=== PATIENT | male | born 1955 | race Caucasian/White ===

== ENCOUNTER → 2018-03-12 12:28 | Outpatient (CLI) | payer OTHER, SELFPAY ==
--- NOTE | 2018-03-12 | DI.ECHO.S_ITS ---
[facility]---------+ [facility] +---------+ : : [address] : [address] : : : : [id number] : : : : Phone: [phone]---------+ Echocardiogram Report + + :Name: GILMA RICHMOND Study Date: 03/12/2018 Height: 71 in : :[facility] Weight: 300 lb: : Gender: Male BSA: 2.5 m2 : :: 1955 Age: 63 yrs : :Reason For Study: TACHYCARDIA : : Performed By: Nicole Jean-Baptiste : :Referring: ASHLYN Hardwick : + + Interpretation Summary The ejection fraction is estimated to be 60-65%. The mitral valve leaflets appear mildly thickened, but open well. There is mild aortic valve sclerosis. The ascending aorta is mildly enlarged. Procedure: A two-dimensional transthoracic echocardiogram with color flow and Doppler was performed. The study quality was technically adequate. Comparison is made with the echocardiogram of 04/29/2016. The heart rate ranged between 76-86 bpm during the study. Left Ventricle: The left ventricle is normal in size, wall thickness, and systolic function without any focal wall motion abnormalities. The ejection fraction is estimated to be 60-65%. Left ventricular wall motion is normal. Right Ventricle: The right ventricle is normal in size and function. Atria: Both atria are normal in size. There is no Doppler evidence for an interatrial shunt. Mitral Valve: The mitral valve is normal in structure and function. The mitral valve leaflets appear mildly thickened, but open well. There is trace mitral regurgitation. Aortic Valve: The aortic valve is grossly normal. There is mild aortic valve sclerosis. There is no aortic valve stenosis. No aortic regurgitation is present. Tricuspid Valve: The tricuspid valve is not well visualized, but is grossly normal. Pulmonary artery pressures cannot be estimated because of the lack of a measurable TR jet velocity. Pulmonic Valve: The pulmonic valve is not well seen, but is grossly normal. Great Vessels: The aortic root is normal size. The ascending aorta is mildly enlarged. The aortic arch is mildly enlarged. The pulmonary artery is not well visualized, but is probably normal size. The IVC is of normal diameter and collapses greater than 50% with a sniff. This suggests a low right atrial pressure of 3 mm Hg. Pericardium/ Pleura There is no pericardial effusion. There is no pleural effusion. MMode/2D Measurements & Calculations LVIDd: 5.1 cm Ao root diam: 3.7 cm LVIDs: 3.4 cm asc Aorta Diam: 4.2 cm FS: 33.5 % Ao Arch Diam (Prox Trans): 3.4 cm IVSd: 0.93 cm LVPWd: 1.0 cm LV falcon. diameter/BSA (cm/m^2): 2.0 LV sys. diameter/BSA (cm/m^2): 1.4 LA A2 area: 25.5 cm2 RA long axis: 5.4 cm LA A4 area: 23.0 cm2 RA area: 16.4 cm2 LA length (vol): 6.0 cm RA vol: 42.0 ml LA vol: 83.6 ml RA : 16.8 ml/m2 LA vol index: 33.4 ml/m2 IVC diam: 1.8 cm RVD1 (basal): 3.5 cm TAPSE: 2.0 cm Doppler Measurements & Calculations Ao V2 max: 122.2 cm/sec LVOT Max Samy: 115.0 cm/sec Ao V2 mean: 93.7 cm/sec LV V1 max P.3 mmHg Ao max P.0 mmHg LV V1 VTI: 23.8 cm Ao mean P.7 mmHg sev ratio: 0.96 Ao V2 VTI: 24.9 cm MV E max samy: 97.3 cm/sec MV A max samy: 110.7 cm/sec MV E/A: 0.88 Med Peak E' Samy: 4.8 cm/sec E/E' med: 20.1 Lat Peak E' Samy: 6.2 cm/sec E/E' lat: 15.7 E/e' average: 17.9 MV dec time: 0.23 sec Reading Physician:01:31 PM
== END ==
PROVIDERS: Visit Provider Physician Assistant
DX: R00.0 Tachycardia, unspecified (principal)
CPT/HCPCS: 93306

== ENCOUNTER → 2018-05-08 10:59 | Outpatient (CLI) | payer OTHER, SELFPAY ==
--- NOTE | 2018-05-08 | DI.US.S_ITS ---
PROCEDURE: US RENAL COMPLETE INDICATIONS: HYPERTENSION TECHNIQUE: Real-time scanning was performed of the kidneys and bladder, with image documentation. COMPARISON: None. FINDINGS: Kidneys: Kidneys are normal in size. Right kidney measures 11.5 cm long; left kidney measures 12.1 cm long. Right renal cortical thickness is 1.4 cm; left renal cortical thickness is 1.6 cm. Renal cortical echotexture is normal. No hydronephrosis or nephrolithiasis. No suspicious solid mass lesions. Bladder: Pre-void bladder volume is 74 mL. Post-void residual is unable to be evaluated. Pre-void images demonstrate no intraluminal masses or stones. On pre-void images, neither ureteral jets are noted with color Doppler interrogation. (Of note, ureteral jets may not be detectable in up to 25% of cases due to insufficient differences in specific gravity between ureteral and bladder urine). Miscellaneous: No free pelvic fluid. IMPRESSION: Normal kidneys. Dictated by: Raul BAUTISTA Interpreted: Charbel Lambert MD on 05/08/2018 at 13:11 Approved by: Charbel Lambert M.D. on 05/08/2018 at 14:28
== END ==
PROVIDERS: Visit Provider Physician Assistant
DX: I10 Essential (primary) hypertension (principal); N32.89 Other specified disorders of bladder
CPT/HCPCS: 76770

== ENCOUNTER → 2018-08-10 10:34 | Outpatient (CLI) | payer OTHER, SELFPAY ==
[2018-08-10 11:59] LABS: Alanine Aminotransferase 33 IU/L (21-72); Albumin 4.3 g/dL (3.5-5.0); Albumin Globulin Ratio 1.5 (1.0-2.8); Alkaline Phosphatase 50 U/L (38-126); Aspartate Aminotransferase 21 IU/L (17-59); Bilirubin Total 0.7 mg/dL (0.2-1.3); Blood Urea Nitrogen 16 mg/dL (9-20); Calcium 9.4 mg/dL (8.4-10.2); Carbon Dioxide 31 mmol/L (22-32); Chloride 98 mmol/L (98-107); Estimated Glomerular Filt Rate > 60.0 mL/min (>60); Globulin 2.8 g/dL (1.7-4.1); Glucose 127 mg/dL (80-110); HEMOLYSIS < 15 (0-50); Potassium 4.2 mmol/L (3.4-5.1); Sodium 137 mmol/L (137-145); Total Protein 7.1 g/dL (6.3-8.2)
[2018-08-10 12:30] LABS: Thyroid Stimulating Hormone 1.81 uIU/mL (0.47-4.68)
[2018-08-13 10:42] LABS: Total Volume 2700 mL; Urine, Metanephrine 117 mcg/24 h (90-315); Urine, Normetanephrine 625 mcg/24 h (122-676)
== END ==
PROVIDERS: Visit Provider Internal Medicine Cardiovascular Disease
DX: I10 Essential (primary) hypertension (principal)
CPT/HCPCS: 36415; 80053; 82088; 83835; 84443

== ENCOUNTER → 2019-01-04 14:36 | Outpatient (CLI) | payer OTHER, SELFPAY ==
--- NOTE | 2019-01-04 | DI.CT.S_ITS ---
PROCEDURE: CT SINUS SCREEN WO CON INDICATIONS: UNSPECIFIED MASTOIDITIIS, UNSPECIFIED EAR TECHNIQUE: Noncontrast 3.0 mm axial images acquired from the frontal sinuses to the mid-sella, with coronal and sagittal reformats. For radiation dose reduction, the following was used: automated exposure control, adjustment of mA and/or kV according to patient size. COMPARISON: None. FINDINGS: Image quality: Excellent. Maxillary Sinuses: Mild mucosal thickening is seen within the inferior aspects of the maxillary sinuses. Mucous retention cysts are also seen within the maxillary sinuses, left more prominent right. There is demineralization of the medial thomas of the maxillary sinuses, right more prominent than left. Ethmoid Air Cells: No bony remodeling or destruction. Sinuses are clear. Sphenoid Sinuses: No bony remodeling or destruction. Sinuses are clear. Frontal Sinuses: No bony remodeling or destruction. There is mild mucosal thickening seen within the inferior frontal sinuses. Ostiomeatal Complexes: The ostiomeatal complexes are narrowed by the presence of infraorbital air cells. The left ostiomeatal complex is further narrowed by soft tissue thickening. Miscellaneous: Visualized intra-orbital contents are normal. No denita bullosa or paradoxical turbinate curvature. There is moderate rightward nasal septal deviation seen, with a rightward directed away nasal septal spur. IMPRESSION: Mild mucosal thickening is seen within the inferior frontal sinuses and the inferior maxillary sinuses. Demineralization of the medial thomas of maxillary sinuses can be seen, likely reflective of prior inflammatory change. Narrowed ostiomeatal complexes. Dictated by: Jesus Theodore M.D. on 01/04/2019 at 14:16 Approved by: Jesus Theodore M.D. on 01/04/2019 at 14:18
== END ==
PROVIDERS: PCP Internal Medicine; Visit Provider Internal Medicine
DX: H70.90 Unspecified mastoiditis, unspecified ear (principal); J34.1 Cyst and mucocele of nose and nasal sinus; J34.2 Deviated nasal septum
CPT/HCPCS: 70486

== ENCOUNTER → 2019-01-07 09:04 | Outpatient (CLI) | payer OTHER, SELFPAY ==
--- NOTE | 2019-01-07 | DI.ECHO.S_ITS ---
[facility]---------+ [facility] +---------+ : : [address] : : : : [id number] : : : : Phone: [phone]+ Echocardiogram Report + + :Name: GILMA RICHMOND Study Date: 01/07/2019 Height: 71 in : :[facility] Exam Location: [facility] Weight: 293 lb : : Gender: Male BSA: 2.5 m2 : :: 1955 Age: 63 yrs BP: 148/88 mmHg: :Reason For Study: DILATED ASCENDING AORTA : : Performed By: Leonides Spivey : :Referring: KAY LUGO : + + Interpretation Summary The left ventricle is normal in size. The ejection fraction is estimated to be 60-65%. There has been no significant change in LVEF since the previous study. The right ventricle is normal in size and function. No significant valvular pathology seen. The ascending aorta is mild-moderately enlarged. 4.2 cm in diameter. In February 2018 it was 4.2 cm in diameter as well. Procedure: A two-dimensional transthoracic echocardiogram with color flow and Doppler was performed. The study quality was technically adequate. Comparison is made with the echocardiogram of 03/12/18. The patient was in normal sinus rhythm during the exam. Left Ventricle: The left ventricle is normal in size. Left ventricular wall thickness is at the upper limits of normal. There is no thrombus. The ejection fraction is estimated to be 60-65%. There has been no significant change since the previous study. There are no focal wall motion abnormalities. MV E/A: 0.94 Med Peak E' Samy: 5.2 cm/sec E/E' med: 20.9. Right Ventricle: The right ventricle is normal in size and function. Atria: The left atrium is mildly dilated. Both atria have mildly increased in size since the prior echo exam. The right atrium is mildly dilated. The interatrial septum is intact with no evidence for an atrial septal defect. Mitral Valve: Tip of the anterior mitral leaflet is calcified which was seen in February 2018 as well. No significant mitral stenosis. There is trace mitral regurgitation. Aortic Valve: The aortic valve is trileaflet. The aortic valve opens well. There is mild aortic valve sclerosis. No aortic regurgitation is present. Tricuspid Valve: The tricuspid valve is normal. There is trace tricuspid regurgitation. The right ventricular systolic pressure is estimated to be at least 23 mmHg based on an estimated right atrial pressure of 3 mm Hg. Pulmonic Valve: The pulmonic valve is not well seen, but is grossly normal. There is no pulmonic valvular regurgitation. Great Vessels: The aortic root is normal size. The ascending aorta is mild- moderately enlarged. The aortic arch is mildly enlarged. The pulmonary artery is normal size. The IVC is of normal diameter and collapses greater than 50% with a sniff. This suggests a low right atrial pressure of 3 mm Hg. Pericardium/ Pleura There is no pericardial effusion. There is no pleural effusion. MMode/2D Measurements & Calculations LVIDd: 4.8 cm LVOT diam: 2.5 cm LVIDs: 2.5 cm Ao root diam: 3.5 cm FS: 47.2 % Aortic Jxn: 3.0 cm EPSS: 0.56 cm asc Aorta Diam: 4.2 cm IVSd: 1.0 cm Ao Arch Diam (Prox Trans): 3.4 cm LVPWd: 1.1 cm LV falcon. diameter/BSA (cm/m^2): 1.9 LV sys. diameter/BSA (cm/m^2): 1.0 LA dimension: 4.4 cm RA long axis: 4.9 cm LA A2 area: 28.8 cm2 RA area: 25.2 cm2 LA A4 area: 23.8 cm2 RA vol: 109.3 ml LA length (vol): 5.6 cm RA : 44.1 ml/m2 LA vol: 104.8 ml IVC diam: 1.2 cm LA vol index: 42.2 ml/m2 Doppler Measurements & Calculations Ao V2 max: 141.4 cm/sec LVOT Max Samy: 123.4 cm/sec Ao V2 mean: 124.5 cm/sec LV V1 max P.1 mmHg Ao max P.0 mmHg LV V1 VTI: 28.2 cm Ao mean P.2 mmHg RAO(I,D): 4.2 cm2 Ao V2 VTI: 31.8 cm RAO(V,D): 4.2 cm2 sev ratio: 0.89 RAO indexed to BSA (cm^2/m^2): 1.7 MV E max samy: 108.0 cm/sec TR max samy: 221.9 cm/sec MV A max samy: 115.4 cm/sec TR max P.7 mmHg MV E/A: 0.94 PA V2 max: 80.9 cm/sec Med Peak E' Samy: 5.2 cm/sec PA V2 mean: 62.5 cm/sec E/E' med: 20.9 PA mean P.6 mmHg Lat Peak E' Samy: 5.7 cm/sec PA pr(Accel): 44.1 mmHg E/E' lat: 19.0 PA Accel Time: 0.08 sec E/e' average: 20.0 MV dec time: 0.24 sec SV(LVOT): 134.6 ml Reading Physician:04:48 PM
== END ==
PROVIDERS: Family Provider Internal Medicine; PCP Internal Medicine; Visit Provider Internal Medicine Cardiovascular Disease
DX: I77.810 Thoracic aortic ectasia (principal); I35.8 Other nonrheumatic aortic valve disorders
CPT/HCPCS: 93306

== ENCOUNTER → 2019-04-05 11:22 | Outpatient (CLI) | payer OTHER, SELFPAY ==
--- NOTE | 2019-04-05 | DI.RAD.S_ITS ---
PROCEDURE: XR CERVICAL SPINE 2V OR 3V INDICATIONS: Cervicalgia TECHNIQUE: 3 view(s) of the cervical spine were acquired. COMPARISON: None. FINDINGS: Bones: No fractures or dislocations to the C7 level. The lateral masses of C1 appear intact on the odontoid view. No suspicious bony lesions. Multilevel degenerative endplate sclerosis and spurring. Diffuse facet arthropathy. There is levocurvature. Soft tissues: No prevertebral soft tissue swelling. Right carotid atherosclerotic calcification IMPRESSION: Levocurvature. Mild diffuse cervical spondylosis and facet arthropathy. Dictated by: Jose Daniel Mejia M.D. on 04/05/2019 at 15:31 Approved by: Jose Daniel Mejia M.D. on 04/05/2019 at 15:33
== END ==
PROVIDERS: PCP Internal Medicine; Visit Provider Internal Medicine
DX: M54.2 Cervicalgia (principal); M47.812 Spondylosis without myelopathy or radiculopathy, cervical region
CPT/HCPCS: 72040

== ENCOUNTER → 2020-12-27 12:52 | Outpatient (CLI) | payer OTHER, SELFPAY ==
--- NOTE | 2020-12-27 | DI.RAD.S_ITS ---
PROCEDURE: XR CHEST 2V INDICATIONS: Dyspnea, unspecified TECHNIQUE: 2 views of the chest were acquired. COMPARISON: None. FINDINGS: Surgical changes and devices: None. Lungs and pleura: Lungs are clear. No pleural effusions or pneumothorax. Mediastinum: Mediastinal contours are normal. Heart size is normal. Bones and chest wall: No suspicious bony abnormalities. Soft tissues appear unremarkable. IMPRESSION: No acute cardiopulmonary disease. Dictated by: Raul Marte Bartolo Interpreted: Ross Martel MD on 12/27/2020 at 13:11 Transcribed by: BLANE on 12/27/2020 at 13:12 Approved by: Ross Martel M.D. on 12/27/2020 at 14:01
== END ==
PROVIDERS: PCP Internal Medicine; Referring Provider Internal Medicine; Visit Provider Internal Medicine
DX: R06.00 Dyspnea, unspecified (principal); B94.8 Sequelae of other specified infectious and parasitic diseases
CPT/HCPCS: 71046

== ENCOUNTER → 2021-01-12 07:33 | Outpatient (CLI) | payer OTHER, SELFPAY ==
--- NOTE | 2021-01-12 | DI.ECHO.S_ITS ---
[facility] + + [facility] +---------+ : : [address] : : : : [address] : : : : [place], : : : : [place] [id number] : : : : Phone: [phone] Echocardiogram Report + + :Name: GILMA RICHMOND Study Date: 01/12/2021 Height: 71 in : :[facility] ReadingLocation: Weight: 320 lb : : Gender: Male BSA: 2.6 m2 : :: 1955 Age: 65 yrs BP: 142/80 mmHg: :Reason For Study: THORACIC AORTIC ANEURYSM : : Performed By: Leonides Spivey : :Referring: MEAGAN MCNEIL : + + Interpretation Summary Borderline concentric left ventricular hypertrophy with ejection fraction 65- 70%. Mild aortic valve sclerosis. Tip of the anterior mitral leaflet is calcified. Mild-moderately enlarged ascending aorta (4.1 cm). Comparison is made with the echocardiogram of 01/07/19, there has been no significant change. Procedure: A two-dimensional transthoracic echocardiogram with color flow and Doppler was performed. The study quality was technically adequate. Comparison is made with the echocardiogram of 01/07/19. The patient was in normal sinus rhythm during the exam. Left Ventricle: The left ventricle is normal in size. There is borderline concentric left ventricular hypertrophy. The ejection fraction is estimated to be 65-70%. There are no focal wall motion abnormalities. Right Ventricle: The right ventricle is normal in size and function. Atria: Both atria are normal in size. There is no Doppler evidence for an atrial septal defect. Mitral Valve: Tip of the anterior mitral leaflet is calcified- this is unchanged since the prior echo. There is trace mitral regurgitation. Aortic Valve: The aortic valve is trileaflet. The aortic valve opens well. There is mild aortic valve sclerosis. No aortic regurgitation is present. Tricuspid Valve: The tricuspid valve is normal in structure and function. There is a trace or physiologic amount of tricuspid regurgitation. Pulmonary artery pressures cannot be estimated because of the lack of a measurable TR jet velocity but the IVC suggests a CVP of around 3 mmHg. Pulmonic Valve: The pulmonic valve is normal in structure and function. There is trace pulmonic regurgitation. Great Vessels: The aortic root is normal size. The ascending aorta is mild- moderately enlarged. The pulmonary artery is normal size. The IVC is of normal diameter and collapses greater than 50% with a sniff. This suggests a low right atrial pressure of 3 mm Hg. Pericardium/ Pleura There is no pericardial effusion. There is no pleural effusion. MMode/2D Measurements & Calculations LVIDd: 5.5 cm LVOT diam: 2.4 cm LVIDs: 3.2 cm Ao root diam: 3.7 cm IVSd: 1.1 cm asc Aorta Diam: 4.1 cm LVPWd: 1.1 cm Ao Arch Diam (Prox Trans): 2.7 cm LV falcon. diameter/BSA (cm/m^2): 2.1 LV sys. diameter/BSA (cm/m^2): 1.2 FS: 41.3 % EPSS: 0.84 cm LA dimension: 4.3 cm RA long axis: 5.7 cm LA A2 area: 22.2 cm2 RA area: 20.6 cm2 LA A4 area: 28.6 cm2 RA vol: 63.4 ml LA length (vol): 6.4 cm RA : 24.6 ml/m2 LA vol: 83.5 ml LA vol index: 32.4 ml/m2 TAPSE: 2.2 cm IVC diam: 1.8 cm Doppler Measurements & Calculations Ao V2 max: 178.8 cm/sec LVOT Max Samy: 132.0 cm/sec Ao V2 mean: 138.5 cm/sec LV V1 max P.0 mmHg Ao V2 VTI: 34.4 cm LV V1 VTI: 28.0 cm Ao max P.8 mmHg Ao mean P.1 mmHg RAO(I,D): 3.7 cm2 MV E max samy: 104.6 cm/sec RAO(V,D): 3.3 cm2 MV A max samy: 138.3 cm/sec RAO indexed to BSA (cm^2/m^2): 1.4 MV E/A: 0.76 sev ratio: 0.81 Med Peak E' Samy: 5.4 cm/sec E/E' med: 19.5 Lat Peak E' Samy: 4.8 cm/sec E/E' lat: 21.7 E/e' average: 20.6 MV dec time: 0.25 sec PA V2 max: 98.4 cm/sec PA V2 mean: 79.0 cm/sec PA mean P.6 mmHg PA pr(Accel): 39.6 mmHg SV(LVOT): 126.7 ml Electronically signed by: Corry Finch on Reading Physician:01/12/2021 02:15 PM
== END ==
PROVIDERS: PCP Internal Medicine; Referring Provider Internal Medicine; Visit Provider Internal Medicine
DX: I71.2 Thoracic aortic aneurysm, without rupture (principal); I77.89 Other specified disorders of arteries and arterioles; I35.8 Other nonrheumatic aortic valve disorders
CPT/HCPCS: 93306

== ENCOUNTER → 2022-12-25 09:07 | Outpatient (CLI) | payer OTHER, SELFPAY ==
--- NOTE | 2022-12-25 | DI.ECHO.S_ITS ---
[facility] +---------+ [facility] +---------+ : : [address] : : : : [id number] : : : : Phone: [phone]+ Echocardiogram Report + + :Name: GILMA RICHMOND Study Date: 12/25/2022 Height: 71.5 in : :[facility] ReadingLocation: Weight: 300 lb : : Gender: Male BSA: 2.5 m2 : :: 1955 Age: 67 yrs BP: 166/102 mmHg: :Reason For Study: THORACIC AORTIC ANEURYSM : :Ordering Physician: FADY, : :FRANK Performed By: Mackenzie Rojas : :Referring: FRANK SHRESTHA : + + Interpretation Summary The left ventricle is normal in size. Left ventricular systolic function appears normal without focal wall motion abnormalities. The ejection fraction is estimated to be 65-70%. Diastolic parameters suggest a relaxation abnormality of the left ventricle, consistent with probable normal filling pressures. The right ventricle is borderline dilated. The right ventricular systolic function is normal. The right ventricular systolic pressure is estimated to be at least 28 mmHg based on an estimated right atrial pressure of 8 mm Hg. Borderline left atrial enlargement. Right atrial size is normal. Tip of the anterior mitral leaflet is calcified- this is unchanged since the prior echo. The mitral valve mean gradient is 3.4 mmHg. The ascending aorta is mild-moderately enlarged. The aortic arch is mild-moderately enlarged. The ascending aorta has not changed but the aortic arch has not changed in size based on last 2 studies. Aortc arch has measured 3.6-3.7cm based on my personal measurements. Consider CTA/MRA of thoracic aorta if clinically warranted. Procedure: A two-dimensional transthoracic echocardiogram with color flow and Doppler was performed. The study quality was technically adequate. Comparison is made with the echocardiogram of 01/12/2021. The patient was in sinus rhythm with heart rates between 70-80 bpm during the exam. Left Ventricle: The left ventricle is normal in size. There is mild concentric left ventricular hypertrophy. Left ventricular systolic function appears normal without focal wall motion abnormalities. The ejection fraction is estimated to be 65-70%. Diastolic parameters suggest a relaxation abnormality of the left ventricle, consistent with probable normal filling pressures. Right Ventricle: The right ventricle is borderline dilated. The right ventricular systolic function is normal. Atria: Borderline left atrial enlargement. Right atrial size is normal. There is no Doppler evidence for an interatrial shunt. Mitral Valve: Tip of the anterior mitral leaflet is calcified- this is unchanged since the prior echo. The mitral valve leaflets appear mildly thickened, but open well. The mitral valve mean gradient is 3.4 mmHg. There is trace mitral regurgitation. Aortic Valve: The aortic valve is mildly calcified. There is mild aortic valve sclerosis. There is no aortic valve stenosis. No aortic regurgitation is present. Tricuspid Valve: The tricuspid valve is normal in structure and function. There is mild tricuspid regurgitation. The right ventricular systolic pressure is estimated to be at least 28 mmHg based on an estimated right atrial pressure of 8 mm Hg. Pulmonic Valve: The pulmonic valve is not well visualized. There is no pulmonic valvular regurgitation. Great Vessels: The aortic root is normal size. The ascending aorta is mild- moderately enlarged. The aortic arch is mild-moderately enlarged. The ascending aorta has not changed but the aortic arch has not changed in size based on last 2 studies. Aortc arch has measured 3.6-3.7cm based on my personal measurements. Consider CTA/MRA of thoracic aorta if clinically warranted. The IVC is dilated (diameter is greater than 2.1 cm) yet it collapses greater than 50% with a sniff. This suggests a right atrial pressure of 8 mm Hg. Pericardium/ Pleura There is no pericardial effusion. There is no pleural effusion. MMode/2D Measurements & Calculations LVIDd: 4.8 cm LVOT diam: 2.1 cm LVIDs: 2.8 cm Ao root diam: 3.6 cm FS: 41.8 % asc Aorta Diam: 4.2 cm IVSd: 1.0 cm Ao Arch Diam (Prox Trans): 3.7 cm LVPWd: 1.2 cm LV falcon. diameter/BSA (cm/m^2): 1.9 LV sys. diameter/BSA (cm/m^2): 1.1 LA A2 area: 25.2 cm2 RA long axis: 5.7 cm LA A4 area: 24.4 cm2 RA area: 21.5 cm2 LA length (vol): 6.4 cm RA vol: 68.8 ml LA vol: 81.2 ml RA : 27.3 ml/m2 LA vol index: 32.2 ml/m2 IVC diam: 2.1 cm RVD1 (basal): 4.3 cm TAPSE: 2.4 cm Doppler Measurements & Calculations Ao V2 max: 157.4 cm/sec LVOT Max Samy: 118.8 cm/sec Ao V2 mean: 116.0 cm/sec LV V1 max P.6 mmHg Ao max P.9 mmHg LV V1 VTI: 24.2 cm Ao mean P.8 mmHg RAO(I,D): 2.6 cm2 Ao V2 VTI: 32.2 cm RAO(V,D): 2.6 cm2 sev ratio: 0.75 ROA indexed to BSA (cm^2/m^2): 1.0 MV E max samy: 113.7 cm/sec TR max samy: 221.7 cm/sec MV A max samy: 117.9 cm/sec TR max P.7 mmHg MV E/A: 0.96 PA V2 max: 77.9 cm/sec Med Peak E' Samy: 4.5 cm/sec PA V2 mean: 57.4 cm/sec E/E' med: 25.1 PA mean P.4 mmHg Lat Peak E' Samy: 5.8 cm/sec PA pr(Accel): 39.6 mmHg E/E' lat: 19.7 E/e' average: 22.4 MV dec time: 0.22 sec MVA(VTI): 2.7 cm2 MV V2 mean: 86.6 cm/sec SV(LVOT): 82.4 ml MV mean P.4 mmHg MV V2 VTI: 30.0 cm Reading Physician:12:23 PM
== END ==
PROVIDERS: PCP Internal Medicine; Referring Provider Student in an Organized Health Care Education/Training Program; Visit Provider Student in an Organized Health Care Education/Training Program
DX: I71.20 Thoracic aortic aneurysm, without rupture, unspecified (principal); I08.2 Rheumatic disorders of both aortic and tricuspid valves; I77.89 Other specified disorders of arteries and arterioles
CPT/HCPCS: 93306

== ENCOUNTER → 2023-02-14 09:43 | Outpatient (CLI) | payer OTHER, SELFPAY | PROVIDERS: PCP Student in an Organized Health Care Education/Training Program; Referring Provider Internal Medicine Critical Care Medicine; Visit Provider Internal Medicine Critical Care Medicine | DX: R06.02 Shortness of breath (principal); Z87.891 Personal history of nicotine dependence | CPT/HCPCS: 94060; 94726; 94729 ==

== ENCOUNTER → 2023-07-24 11:15 | Outpatient (CLI) | payer OTHER, SELFPAY ==
--- NOTE | 2023-07-24 11:20 | DI.RAD.S_ITS ---
PROCEDURE: XR CHEST 2V INDICATIONS: COUGH TECHNIQUE: 2 views of the chest were acquired. COMPARISON: [facility], CR, XR CHEST 2V, 12/27/2020, 12:54. FINDINGS: Surgical changes and devices: None. Lungs and pleura: Lungs are clear. No pleural effusions or pneumothorax. Peribronchial cuffing. Mediastinum: Mediastinal contours are normal. Heart size is normal. Bones and chest wall: No suspicious bony abnormalities. Soft tissues appear unremarkable. IMPRESSION: Peribronchial cuffing, typically indicating infectious or inflammatory bronchitis. Dictated by: Peter Thomas M.D. on 07/24/2023 at 14:04 Approved by: Peter Thomas M.D. on 07/24/2023 at 14:04
== END ==
PROVIDERS: PCP Student in an Organized Health Care Education/Training Program; Referring Provider Student in an Organized Health Care Education/Training Program; Visit Provider Student in an Organized Health Care Education/Training Program
DX: R05.8 Other specified cough (principal)
CPT/HCPCS: 71046